=== PATIENT | male | born 1945 | race Caucasian/White ===

== ENCOUNTER → 2016-09-15 | Day surgery (SDC) | payer BC ==
[~2016-09-15] MED LIST: ACETAMINOPHEN PO; ALLEGRA-D1 TAB.SR1 PO; ALLOPURINOL300 MG PO; AMLODIPINE BESYL5 MG PO; ARNUITY ELLIP200 MCG INH; ATENOLOL PO; BENADRYL PO; CALCIUM 600 + D1 TAB PO; CELEXA PO; CHLORTHALIDONE50 MG PO; DESYREL100 MG PO; ESCITALOPRAM OX10 MG PO; FAMOTIDINE PO; FLOMAX0.4 M1 PO; FLONASE 0.05% N16 G1; FLOVENT DI50 MCG/DIS; GABAPENTIN600 MG PO; HYDROCODON-ACE1 EA11; HYDROCODON-ACE1 EAC4 PO; HYDROCODONE PO; HYDROCODONE-APA1 T54 PO; LEXAPRO20 MG PO; LISINOPRIL-HCTZ1 T14 PO; LOSARTAN-HCTZ1 EAC1 PO; MEGESTROL ACETA20 MG; MEGESTROL ACETA20 MG PO; MULTI VITAMIN1 EACH PO; NORCO 5/325 TAB1 TAB PO; NORVASC PO; PARAFON FORTE500 MG PO; PERCOCET 5/321 UDTAB PO; PREDNISONE PO; PROPECIA1 MG PO; SINGULAIR PO; VIIBRYD40 MG PO; ZYCLARA1 EACH TOP
--- NOTE | ~2016-09-15 | OR ---
Unit #: [id number] #: [id number] Patient: SIXTO WARD [id number] [address] [address] [id number] O MR#: [id number] NAME: SIXTO WARD. ROOM: Date of Procedure: 09/15/2016 Admission Date: 09/15/2016 Surgeon: Marcello Srivastava M.D. : 1945 Attending Physician: Marcello Srivastava M.D. Referring Physician: Marcello Srivastava M.D. Primary Care Physician: Lindsay Wheeler M.D. OPERATIVE REPORT PRIMARY CARE PHYSICIAN Lindsay Wheeler M.D. PREOPERATIVE DIAGNOSIS Hematochezia. PROCEDURES PERFORMED 1. Colonoscopy and polypectomy. 2. Colonoscopy and argon plasma coagulation ablation. POSTOPERATIVE DIAGNOSES 1. The patient had two sessile polyps in the cecum. These were 8 mm and a centimeter each. Both were removed using snare polypectomy. 2. Mild sigmoid and descending colon diverticulosis. 3. 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 These are the cause of patient's bleeding and were ablated using argon plasma coagulation therapy. Rest of the examination up to cecum was normal. The quality of the prep was excellent. RECOMMENDATIONS 1. Follow up the results of polyp histology. 2. Repeat colonoscopy in 5 years. SEDATION USED MAC. DESCRIPTION OF PROCEDURE Following detailed explanation of the potential risks and complications of a colonoscopy, namely perforation, bleeding, and complication related to sedation, the patient was brought to GI lab and laid in the left lateral decubitus position. A digital rectal examination was performed, which was normal. Lubricated tip of the Olympus video colonoscope was inserted through the anus and advanced under direct vision. The scope was advanced past rectosigmoid into descending colon. 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 These were not actively bleeding. In addition, scattered diverticula were noted in the sigmoid and ascending colon. The scope tip was then navigated all the way up to cecum with visualization of the ileocecal valve and the appendiceal orifice. Preparation was excellent with good visualization and photodocumentation was obtained. Successive segments of the colonic Unit #: [id number] #: [id number] Patient: SIXTO WARD mucosa were examined upon withdrawal. The patient was noted to have two sessile polyps in the cecum. These were 8 mm and a centimeter each. Both were removed using snare polypectomy. They were retrieved and sent for histology. Excellent hemostasis was achieved and photodocumentation was obtained. No additional polyps were noted. The left-sided scant diverticula were again noted at the time of withdrawal. The attention was then focused on the angiodysplasias or vascular malformations in the rectum. These were ablated using argon plasma coagulation therapy. Excellent hemostasis was achieved and photodocumentation was obtained. No internal hemorrhoids were noted at the anal verge. The scope was then withdrawn and the patient returned to the recovery area. He tolerated the procedure without any postprocedure complications. Dictated by... Alonzo Max/seema TD: 09/15/2016 13:04 JOB #: [id number] OPERATIVE REPORT Page 1 of 1 X Marcello Srivastava MD X PROCEDURE OPERATIVE NOTE
== END | disposition home or self-care (01) ==
LOC: COPS 09:32
DX: D12.0 Benign neoplasm of cecum (principal); K57.30 Diverticulosis of large intestine without perforation or abscess without bleeding; K55.20 Angiodysplasia of colon without hemorrhage; M19.90 Unspecified osteoarthritis, unspecified site; I10 Essential (primary) hypertension; J45.909 Unspecified asthma, uncomplicated; Z92.3 Personal history of irradiation; Z85.46 Personal history of malignant neoplasm of prostate; Z87.442 Personal history of urinary calculi; Z87.01 Personal history of pneumonia (recurrent); Z79.899 Other long term (current) drug therapy; Z98.890 Other specified postprocedural states
CPT/HCPCS: 88305

== ENCOUNTER → 2016-10-10 | Outpatient (CLI) | payer BC ==
--- NOTE | ~2016-10-10 | CR7 ---
[facility] A Service of [facility] & [facility] RADIOLOGY TEXT RESULTS PATIENT: SIXTO WRAD LOCATION: [facility] : [birth year] UNIT #: [id number] AGE: [address]: Pavan Guerrero MD SEX: M ORDER DR: [id number] [facility] [address] [place], [place] [address] [id number] O MR#: [id number] Acc #: [id number] NAME: SIXTO WARD. : 1945 SEX: M STUDY DATE/TIME: 10/10/2016 12:14 UNIT: [facility] ROOM: STUDY DESCRIPTION: CR Abdomen Single AP View Attending Physician: Pavan Geurrero M.D. Referring Physician: Pavan Guerrero M.D. Ordering Physician: Pavan Guerrero M.D. Primary Care Physician: Lindsay Wheeler M.D. MEDICAL IMAGING REPORT This report is preliminary unless electronic signature is present EXAM Frontal abdomen, 10/10/2016 INDICATION 71-year-old male with a history of renal calculus and abdominal pain. Bladder problems. Symptoms began today. History of incontinence. TECHNIQUE Frontal abdomen was performed. Correlation is made with CT 01/11/2014. FINDINGS Postop changes related to the prostate gland noted. Stable vascular calcification in the right hemipelvis. There is degenerative change of the hips, right greater than left. There are two stones associated with the [id number] pole left kidney, the largest of these measures 6 mm and the smaller measures about 2 mm. Both renal shadows are obscured by air and fecal material. There are degenerative changes in the lumbar spine. IMPRESSION 1. Two left-sided renal stones. The largest of which measures 6 mm. 2. Stable vascular calcification in the right hemipelvis. Dictated by... Krishna Aguilar M.D. THIS IS AN ELECTRONICALLY VERIFIED REPORT Krishna Aguilar M.D. at 10/11/2016 9:17 AM DENTON/claude TD: 10/11/2016 00:18 JOB #: [id number] [facility] A Service of [facility] & [facility] RADIOLOGY TEXT RESULTS PATIENT: SIXTO WARD LOCATION: [facility] #: [id number] : [birth year] UNIT #: [id number] AGE: [address]: Pavan Guerrero MD SEX: M ORDER DR: MEDICAL IMAGING REPORT Page 1 of 1 COPY
== END | disposition home or self-care (01) ==
LOC: CRAD 11:54
DX: N20.0 Calculus of kidney (principal); I99.8 Other disorder of circulatory system
CPT/HCPCS: 74000

== ENCOUNTER → 2016-10-20 | Outpatient (CLI) | payer BC ==
[2016-10-20 13:16] LABS: BUN/CREATININE RATIO 26.66; CALCIUM SERUM 9.7 mg/dL (8.4-10.2); CREATININE SERUM 0.9 mg/dL (0.6-1.4); GLOM FILT RATE Estimated 84.4 mL/min (>60); POTASSIUM 4.2 mmol/L (3.5-5.1)
== END | disposition home or self-care (01) ==
LOC: CLAB 12:20
PROVIDERS: Internal Medicine Nephrology
DX: N18.2 Chronic kidney disease, stage 2 (mild) (principal)
CPT/HCPCS: 36415; 80048

== ENCOUNTER → 2016-10-31 | Outpatient (CLI) | payer BC ==
--- NOTE | ~2016-10-31 | CT127 ---
[facility]. [facility] A Service of [facility] & [facility] RADIOLOGY TEXT RESULTS PATIENT: SIXTO WARD LOCATION: [facility] : 41 UNIT #: [id number] AGE: [address]: Marcello Latham MD SEX: M ORDER DR: [id number] [address] [address] [id number] O MR#: [id number] Acc #: [id number] NAME: SIXTO WARD. : 1945 SEX: M STUDY DATE/TIME: 10/31/2016 11:40 UNIT: [facility] ROOM: STUDY DESCRIPTION: CT Upper Ext Lt Wo Cont Attending Physician: Marcello Latham M.D. Referring Physician: Marcello Latham M.D. Ordering Physician: Marcello Latham M.D. Primary Care Physician: Lindsay Wheeler M.D. MEDICAL IMAGING REPORT This report is preliminary unless electronic signature is present. EXAM CT left upper extremity HISTORY 71-year-old male rotator cuff surgery x2 with failure. Surgery in February 2016 with shoulder replacement. Patient subsequently developed a fractured acromion. Evaluate fracture healing. COMPARISON CT left shoulder 11/19/2015, left shoulder films 07/28/2016. Comparison also made to left shoulder films 09/12/2016 and 10/20/2016. FINDINGS Thin section axial images performed through the left shoulder with multiplanar reconstructed images reviewed at a workstation. This CT examination was performed with one or more of the following radiation dose reduction techniques: automatic exposure control, adjustment of mA and/or kV according to patient size, and iterative reconstruction. Patient status post left reverse shoulder arthroplasty with humeral and glenoid components in expected position. No evidence of fracture or loosening of instrumentation. There is a sagittal plane vertical fracture through the mid portion of the acromion with extensive callous both anterior and posterior to the fracture but the fracture remains clearly visible and is estimated at less than 25% healed. Exuberant callus around the fracture may indicate abnormal motion or stress. No significant endosteal healing. Minimal AC joint arthropathy. Surrounding soft tissues unremarkable. IMPRESSION Vertical fracture through the mid portion of the acromion approximately 5 cm from the distal tip of the acromion. The fracture is mildly angulated and mildly posterior displaced about 6 mm. No significant fracture healing is identified. The presence of exuberant callus surrounding the fracture may indicate abnormal motion or stress. The fracture is STS. [facility] A Service of [facility] RADIOLOGY TEXT RESULTS PATIENT: SIXTO WARD LOCATION: [facility] : 41 UNIT #: [id number] AGE: [address]: Marcello Latham MD SEX: M ORDER DR: estimated at less than 25% healed. Dictated by... Justine Mensah M.D. THIS IS AN ELECTRONICALLY VERIFIED REPORT Justine Mensah M.D. at 11/02/2016 7:27 AM AGA/france TD: 11/01/2016 12:59 JOB #: [id number] MEDICAL IMAGING REPORT Page 1 of 1
== END | disposition home or self-care (01) ==
LOC: SCT 10:55
DX: S42.122D Displaced fracture of acromial process, left shoulder, subsequent encounter for fracture with routine healing (principal); Z96.612 Presence of left artificial shoulder joint
CPT/HCPCS: 73200

== ENCOUNTER → 2016-11-27 | Outpatient (CLI) | payer BC ==
--- NOTE | ~2016-11-27 | ST ---
Unit #: [id number] #: [id number] Patient: SIXTO WARD [id number] [address] [address] [id number] O MR#: [id number] NAME: SIXTO WARD : 1945 SEX: M STUDY DATE/TIME: 11/27/2016 UNIT: [facility] ROOM: STUDY DESCRIPTION: Attending Physician: Freddie Duque M.D. Referring Physician: Freddie Duque M.D. Primary Care Physician: Lindsay Wheeler M.D. CARDIOLOGY REPORT EXAM ECG portion of Cardiolite stress test. ORDERING PHYSICIAN Dr. Freddie Duque. INDICATIONS Dyspnea. SUMMARY The patient underwent Cardiolite stress test. Patient exercised on Power protocol for 5 minutes. Patient's resting heart rate is 52 beats per minute which increased to 147 beats per minute representing 102% of the maximum age predicted heart rate. The patient's resting blood pressure is 119/67 mmHg which increased to 200/92 mmHg. The patient's resting ECG shows normal sinus rhythm and normal ST segments. Patient's stress ECG shows sinus tachycardia with nonspecific ST segment changes, not meeting ischemic threshold. There is isolated PACs seen during stress and recovery. There is no supraventricular ectopy noted. There are no pauses noted. CONCLUSION 1. Negative ECG treadmill portion of the Cardiolite stress for ischemia. 2. Fair exercise tolerance. 3. Hypertensive response to exercise. 4. Perfusion imaging dictated below. EXAM Nuclear imaging. SUMMARY Patient underwent nuclear stress test. Received a resting dose of 9.79 mCi and a stress dose of 29.4 mCi. On gated imaging, patient appears to have normal wall motion with a preserved ejection fraction. Patient's LV EF is 60%. On perfusion imaging, comparing rest and stress images, there appears to be a fixed defect involving the inferior wall on rest images which gets better on stress, likely representing inferior attenuation artifact. On raw images, (1) motion and subdiaphragmatic uptake seen. CONCLUSION 1. No obvious ischemia. Unit #: [id number] #: [id number] Patient: SIXTO WARD 2. Preserved ejection fraction. 3. Inferior attenuation artifact is present. 4. ECG portion dictated above. Dictated by... Prafull Raheja, M.D. [place]/ch TD: 11/27/2016 16:59 JOB #: [id number] CARDIOLOGY REPORT Page 1 of 1 X OLENA RIVAS MD CARDIOLOGY REPORT
== END | disposition home or self-care (01) ==
LOC: CNUC 07:45
DX: R07.9 Chest pain, unspecified (principal); R06.00 Dyspnea, unspecified; R53.83 Other fatigue
CPT/HCPCS: 78452; 93017; 93306; A9500